=== PATIENT | female | born 1970 ===

== ENCOUNTER 2021-04-17 18:38 | Emergency (ER) | payer OTHER ==
[~2021-04-17] VITALS: Ht 175.3 cm; Wt 55.3 kg
[2021-04-17] MEDS ORDERED: IBUPROFEN 600 MG TAB PO ONE (19:00)
[2021-04-17] MEDS ORDERED: diazePAM 2 MG TAB PO ONE (19:00)
[2021-04-17 23:25] VITALS: BP 122/69
== END 2021-04-17 23:30 | disposition home or self-care (01) ==
LOC: ER 18:38
DX: S29.011A Strain of muscle and tendon of front wall of thorax, initial encounter (principal); J45.909 Unspecified asthma, uncomplicated; F17.210 Nicotine dependence, cigarettes, uncomplicated; F12.10 Cannabis abuse, uncomplicated; Z90.710 Acquired absence of both cervix and uterus; X58.XXXA Exposure to other specified factors, initial encounter; Y93.89 Activity, other specified; Y92.89 Other specified places as the place of occurrence of the external cause; Y99.8 Other external cause status
CPT/HCPCS: 71045; 93005

== ENCOUNTER 2021-09-27 08:32 | Emergency (ER) | payer OTHER ==
[~2021-09-27] VITALS: Ht 175.3 cm; Wt 56.7 kg
[2021-09-27] MEDS ORDERED: HYDROcodone-ACET 10/325MG TAB PO ONE (09:30)
[2021-09-27] MEDS ORDERED: ONDANSETRON ODT 4 MG TAB PO ONE (09:30)
[2021-09-27 10:01] VITALS: BP 138/89
[2021-09-27] MEDS ORDERED: TRAM50TA2 PO (10:07)
== END 2021-09-27 10:41 | disposition home or self-care (01) ==
LOC: ER 08:32
DX: M25.572 Pain in left ankle and joints of left foot (principal); M25.571 Pain in right ankle and joints of right foot; J45.909 Unspecified asthma, uncomplicated; F17.210 Nicotine dependence, cigarettes, uncomplicated; Z87.39 Personal history of other diseases of the musculoskeletal system and connective tissue; Z90.710 Acquired absence of both cervix and uterus; Z79.899 Other long term (current) drug therapy; Z88.6 Allergy status to analgesic agent; Z88.5 Allergy status to narcotic agent; Z88.8 Allergy status to other drugs, medicaments and biological substances
CPT/HCPCS: 99283; Q0162

== ENCOUNTER 2023-04-26 13:46 | Inpatient (IN) | payer OTHER ==
[~2023-04-26] VITALS: Ht 175.3 cm; Wt 69.2 kg
[~2023-04-26 13:46] MED LIST: TRAM50TA2 PO
[2023-04-26 14:12] LABS: Basophils # (auto) 0.1 10 ^3/uL (0-0.2); Basophils % (auto) 1.2 % (0.0-2.0); Eosinophils # (auto) 0.3 10 ^3/uL (0-0.8); Eosinophils % (auto) 3.7 % (0.0-7.0); Hematocrit 40.4 % (36.0-46.0); Hemoglobin 13.6 g/dL (12.2-16.2); Lymphocytes # (auto) 2.1 10 ^3/uL (0.4-5.4); Lymphocytes % (auto) 29.8 % (10.0-50.0); Mean Corpuscular Hemoglobin 31.9 pg (28.0-32.0); Mean Corpuscular Hgb Conc. 33.7 g/dL (32.0-36.0); Mean Corpuscular Volume 94.6 fL (80.0-100.0); Monocytes # (auto) 0.7 10 ^3/uL (0-1.3); Neutrophils # (auto) 3.8 10 ^3/uL (1.6-8.6); Neutrophils % (auto) 55.3 % (37.0-80.0); Nucleated Red Blood Cells % 0.1 %; Red Blood Cells 4.27 10^6/uL (4.0-5.20); Red Cell Distribution Width 13.5 % (11.8-14.3); White Blood Cell 6.9 10^3/uL (4.4-10.8)
[2023-04-26 14:36] LABS: Urine Bacteria NONE SEEN /hpf (None Seen); Urine Blood Negative /uL (Negative); Urine Clarity Clear (Clear); Urine Color Colorless (Yellow); Urine Protein, UAD Negative (Negative); Urine Specific Gravity 1.006 (1.001-1.035); Urine Urobilinogen Normal (Negative); Urine WBC <1 /hpf (0 - 5); Urine pH 6.5 (5.0-8.0)
[2023-04-26 14:55] LABS: Alanine Aminotransferase 14 U/L (7-40); Albumin 5.3 g/dL (3.2-4.8); Alkaline Phosphatase 117 U/L (46-116); Anion Gap 7 (5-15); Aspartate Aminotransferase 15 U/L (13-40); BUN/Creatinine Ratio 14.7 (10.0-20.0); Bilirubin, Total 0.6 mg/dL (0.2-1.0); Blood Urea Nitrogen 14 mg/dL (9-23); Carbon Dioxide 27 mmol/L (20-30); Chloride 101 mmol/L (98-107); Glucose 119 mg/dL (74-106); Magnesium 1.9 mg/dL (1.6-2.6); Potassium 3.9 mmol/L (3.5-5.1); Sodium 135 mmol/L (136-145); Total Protein 7.9 g/dL (5.7-8.2)
[2023-04-26 15:00] VITALS: RESP 18; O2SAT 98
[2023-04-26 16:00] LABS: Amphetamine Screen, Urine Neg (NEGATIVE)
[2023-04-26] MEDS ORDERED: NITROGLYCERIN 0.4 MG SL TAB SL ONE (16:00)
[2023-04-26 16:01] LABS: Barbiturate Scree,Urine Neg (NEGATIVE); Benzodiazephine Screen, Urine Neg (NEGATIVE); Cannabinoid Screen, Urine Pos (NEGATIVE); Cocaine Screen, Urine Neg (NEGATIVE); Opiate Scree,Urine Neg (NEGATIVE); Phencyclidine Screen, Urine Neg (NEGATIVE)
[2023-04-26] MEDS ORDERED: MORPHINE SULFATE INJ 2 MG/ml SYRG IV PRN ×2 (16:15)
[2023-04-26] MEDS ORDERED: ACETAMINOPHEN 325 MG TAB PO PRN (16:15)
[2023-04-26] MEDS ORDERED: NITROGLYCERIN 0.4 MG SL TAB SL PRN (16:15)
[2023-04-26] MEDS ORDERED: HYDROcodone-ACET 5/325MG TAB PO PRN (16:15)
[2023-04-26] MEDS ORDERED: ALBUTEROL SULF 2.5 MG/0.5ML(0.5%) NEB SOLN NEB PRN ×2 (16:30→19:00)
[2023-04-26] MEDS: SODIUM CHLORIDE 0.9% 1,000 ML IV SCH (16:40)
[2023-04-26 17:29] LABS: Triglycerides 70 mg/dL (< 150)
[2023-04-26 17:30] LABS: LDL Cholesterol 194 mg/dL (< 100)
[2023-04-26 17:31] LABS: Cholesterol 262 mg/dL (< 200); HDL Cholesterol 56 mg/dL (40-59)
[2023-04-26] MEDS: LORazepam 0.5 MG TAB PO PRN (17:51)
[2023-04-26] MEDS ORDERED: KETOROLAC TROMETH 30 MG/ML 1ML VIAL IV ONE (18:30)
[2023-04-26] MEDS ORDERED: diphenhdrAMINE HCL 50 MG/1 ML VL IV ONE (18:30)
[2023-04-26 18:54] VITALS: BP 133/72; PULSE 71; RESP 20; O2SAT 99
[2023-04-26] MEDS ORDERED: ASPirin 325 MG TAB PO ONE (19:00)
[2023-04-26 19:30] VITALS: PULSE 77; RESP 16; O2SAT 100
[2023-04-26 22:27] VITALS: RESP 20; O2SAT 96
[2023-04-26] MEDS: KETOROLAC TROMETH 30 MG/ML 1ML VIAL IV PRN (23:35)
[2023-04-27] MEDS: LORazepam 0.5 MG TAB PO PRN (05:49)
[2023-04-27] MEDS: SODIUM CHLORIDE 0.9% 1,000 ML IV SCH (06:04)
[2023-04-27 06:08] VITALS: BP 138/83; PULSE 85; RESP 18; TEMP 97.6; O2SAT 95
[2023-04-27 06:25] VITALS: O2SAT 100
[2023-04-27 07:13] LABS: Basophils # (auto) 0 10 ^3/uL (0-0.2); Basophils % (auto) 0.8 % (0.0-2.0); Eosinophils # (auto) 0.3 10 ^3/uL (0-0.8); Hematocrit 38.8 % (36.0-46.0); Lymphocytes # (auto) 1.5 10 ^3/uL (0.4-5.4); Lymphocytes % (auto) 35.7 % (10.0-50.0); Mean Corpuscular Hemoglobin 31.6 pg (28.0-32.0); Mean Corpuscular Hgb Conc. 33.6 g/dL (32.0-36.0); Mean Corpuscular Volume 94.1 fL (80.0-100.0); Monocytes # (auto) 0.6 10 ^3/uL (0-1.3); Monocytes % (auto) 13.9 % (0.0-12.0); Neutrophils # (auto) 1.7 10 ^3/uL (1.6-8.6); Neutrophils % (auto) 42.6 % (37.0-80.0); Red Blood Cells 4.13 10^6/uL (4.0-5.20); Red Cell Distribution Width 13.3 % (11.8-14.3); White Blood Cell 4.1 10^3/uL (4.4-10.8)
[2023-04-27 07:29] LABS: Alanine Aminotransferase 11 U/L (7-40); Albumin 4.9 g/dL (3.2-4.8); Alkaline Phosphatase 106 U/L (46-116); Anion Gap 5 (5-15); Aspartate Aminotransferase 15 U/L (13-40); BUN/Creatinine Ratio 10.8 (10.0-20.0); Blood Urea Nitrogen 10 mg/dL (9-23); Calcium 9.9 mg/dL (8.7-10.4); Carbon Dioxide 28 mmol/L (20-30); Chloride 105 mmol/L (98-107); Glucose 95 mg/dL (74-106); Potassium 4.3 mmol/L (3.5-5.1); Sodium 138 mmol/L (136-145)
[2023-04-27 07:30] LABS: Bilirubin, Total 0.9 mg/dL (0.2-1.0); Total Protein 7.6 g/dL (5.7-8.2)
[2023-04-27 08:00] VITALS: BP 140/87; PULSE 76; PULSE 82; RESP 18; TEMP 97.7; O2SAT 99
[2023-04-27 09:00] VITALS: BP 140/87; PULSE 76; RESP 18; TEMP 97.7; O2SAT 99
[2023-04-27] MEDS: KETOROLAC TROMETH 30 MG/ML 1ML VIAL IV PRN (09:29)
[2023-04-27] MEDS ORDERED: ASPirin 81 mg TAB PO SCH (10:00)
[2023-04-27] MEDS ORDERED: ENOXAPARIN SOD 40 MG/0.4 ML SYRINGE SC SCH (10:00)
[2023-04-27 13:00] VITALS: BP 128/80; PULSE 73; RESP 19; TEMP 97.8; O2SAT 100
[2023-04-27 15:35] VITALS: BP 140/87; PULSE 76; RESP 18; TEMP 97.7; O2SAT 99
== END 2023-04-27 15:55 | disposition home or self-care (01) | DRG 92 ==
LOC: ER 13:46 → TELE 16:16 → TELE-WESTW 22:04
PROVIDERS: ADMIT Internal Medicine Pulmonary Disease; ATTEND Student in an Organized Health Care Education/Training Program
DX: G89.4 Chronic pain syndrome (principal); I20.0 Unstable angina; M79.7 Fibromyalgia; K21.9 Gastro-esophageal reflux disease without esophagitis; E78.5 Hyperlipidemia, unspecified; F17.210 Nicotine dependence, cigarettes, uncomplicated; F41.9 Anxiety disorder, unspecified; R56.9 Unspecified convulsions; J45.909 Unspecified asthma, uncomplicated; Z90.710 Acquired absence of both cervix and uterus; Z88.6 Allergy status to analgesic agent; Z82.49 Family history of ischemic heart disease and other diseases of the circulatory system; Z79.899 Other long term (current) drug therapy; Z88.8 Allergy status to other drugs, medicaments and biological substances
CPT/HCPCS: 36415; 71045; 80053; 80061; 80307; 81001; 83605; 83735; 83880; 84443; 84484; 85025; 85379; 93005; 93306; 96361; 96374; 96375; G0378; J1885